=== PATIENT | male | born 1965 | race Caucasian/White ===

== ENCOUNTER → 2017-01-16 | Outpatient (CLI) | payer BC ==
[~2017-01-16] MED LIST: CALC-459 PO; CALCIUM 500 PO; CHOL1TAB5 OR; GABA-113 PO; [UNRECOGNIZED DRUG - OTHER] PO
[2017-01-16 19:23] LABS: FERRITIN 158.2 ng/ml (8.0-388.0); THYROID STIMULATING HORMONE 1.75 uIu/ml (0.300-4.500)
[2017-01-17 07:53] LABS: ESTIMATED AVERAGE GLUCOSE 103 mg/dl; HA1C FLAG Normal (Normal)
[2017-01-21 16:31] LABS: GLUTAMIC ACID DECARBOXYLASE-65 <5 IU/mL (<5); METHYLMALONIC ACID 143 NMOL/L (87-318); MICROSOMAL AB <1 IU/ML (<9); THYROGLOBULIN 15.3 NG/ML (2.8-40.9)
== END | disposition home or self-care (01) ==
LOC: C.LAB 18:09
PROVIDERS: ATTEND Chiropractor
DX: M79.1 Myalgia (principal)

== ENCOUNTER 2017-08-01 09:58 | Emergency (ER) | payer BC ==
[~2017-08-01] VITALS: Ht 177.8 cm; Wt 67.0 kg
[~2017-08-01 09:58] MED LIST changes: -CALC-459 PO; -GABA-113 PO; -[UNRECOGNIZED DRUG - OTHER] PO
[2017-08-01 10:20] VITALS: TEMP 37.2; Ht 177.8 cm; Wt 67.0 kg
[2017-08-01] MEDS ORDERED: GABA-113 PO (11:16)
[2017-08-01] MEDS ORDERED: CALC-459 PO (11:16)
[2017-08-01] MEDS ORDERED: [UNRECOGNIZED DRUG - OTHER] PO (11:16)
--- NOTE | 2017-08-01 11:37 | EMERGENCY ROOM VISIT NOTE ---
History Report prepared by Emily: Henry Manley Under the Supervision of: Dr. Shelley Billingsley D.O. First contact with patient: 11:17 Chief Complaint: DIZZY Stated Complaint: DIZZY, LIGHT HEADED Nursing Triage Summary: This morning felt light headed/dizzy, got in car to drive and when he got to work he still felt dizzy. Now feels woozy. Pt verbalizes this has been ongoing for a couple of weeks, seems to be positional in nature, but today was constant. Called PCP and was referred here for eval. Denies N/V/D, H/A, weakness. History of Present Illness The patient is a 51 year old male who presents to the Emergency Room with complaints of an episode of lightheadedness that occurred prior to arrival this morning. He says that for the past few weeks, he has been getting a head-victor and wooziness upon positional change, but today, the symptoms became more persistent and he felt lightheaded. He notes that he was getting ready for work when he started feeling lightheaded, and it got worse after driving to work. He notes that he was not dizzy however. He called his primary care physician's office, and was told to come here for evaluation. He adds that he felt slightly nauseous at work. The patient says that he now just feels a bit woozy but is mostly fine with resolved symptoms. He denies any loss of consciousness, headaches, chest pain, shortness of breath, sweats, vomiting, diarrhea, or any recent cold symptoms. The patient notes that he has Celiac disease, and went 4 years undiagnosed from 2004 to 2008. He says that he never got his energy back however. 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 He notes no recent sick contacts. He adds that he had a couple hour bus trip last week. 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 He notes that he follows-up with Dr. Weiss of GI. Source of History: patient Onset: Prior to arrival this morning Position: other (global - lightheadedness) Timing: other (episode) Modifying Factors (Worsening): other (positional change) Associated Symptoms: + nausea, No LOC, No headache, No diaphoresis, No chest pain, No SOB, No vomiting, No diarrhea Note: Associated symptoms: Symptoms mostly resolved, just a bit woozy. Denies recent cold symptoms. Review of Systems See HPI for pertinent positives & negatives. A total of 10 systems reviewed and were otherwise negative. Past Medical & Surgical Medical Problems: (1) Allergic rhinitis (2) Celiac disease (3) Neuropathy, leg Family History Hypoglycemia Social History Smoking Status: Never Smoker Smokeless Tobacco Use: No Alcohol Use: none Drug Use: none Marital Status: Housing Status: lives with family Occupation Status: employed Current/Historical Medications Scheduled Calcium Carbonate-Cholecalcife (Calcium 600+D 600-800 mg-Unit), 1 TAB PO DAILY Gabapentin (Neurontin), 300 MG PO BID [Opticort Adrena], 1 TAB PO DAILY Allergies Coded Allergies: Acetaminophen (Verified Allergy, Unknown, 08/25/15) Pseudoephedrine (Verified Allergy, Unknown, 08/25/15) Physical Exam Vital Signs Date Time Temp Pulse Resp B/P (MAP) Pulse Ox O2 Delivery O2 Flow Rate FiO2 08/01/17 13:20 44 15 123/71 99 08/01/17 12:57 44 15 123/71 99 Room Air 08/01/17 11:15 45 16 117/75 100 Room Air 60 123/81 59 118/81 08/01/17 10:20 37.2 68 18 125/70 98 Nasal Cannula Physical Exam GENERAL: alert, well appearing, well nourished, no distress, non-toxic EYE EXAM: normal conjunctiva, PERRL and EOM's grossly intact OROPHARYNX: no exudate, no erythema, lips, buccal mucosa, and tongue normal and mucous membranes are moist NECK: supple, no nuchal rigidity, no adenopathy, non-tender LUNGS: Clear to auscultation. Normal chest wall mechanics HEART: no murmurs, S1 normal and S2 normal ABDOMEN: abdomen soft, non-tender, normo-active bowel sounds, no masses, no rebound or guarding. BACK: Back is symmetrical on inspection and there is no deformity, no midline tenderness, no CVA tenderness. SKIN: no rashes and no bruising UPPER EXTREMITIES: upper extremities are grossly normal. LOWER EXTREMITIES: No pitting edema. NEURO EXAM: Normal sensorium, cranial nerves II-XII grossly intact, normal speech, no gross weakness of arms, no gross weakness of legs. No drift. Finger to nose intact. Gross sensation intact. Medical Decision & Procedures Laboratory Results 08/01/17 11:50 Red Blood Count 4.74, Mean Corpuscular Volume 90.3, Mean Corpuscular Hemoglobin 31.6, Mean Corpuscular Hemoglobin Concent 35.0, Mean Platelet Volume 10.3, Neutrophils (%) (Auto) 61.9, Lymphocytes (%) (Auto) 30.7, Monocytes (%) (Auto) 5.8, Eosinophils (%) (Auto) 1.3, Basophils (%) (Auto) 0.3, Neutrophils # (Auto) 1.91, Lymphocytes # (Auto) 0.95, Monocytes # (Auto) 0.18, Eosinophils # (Auto) 0.04, Basophils # (Auto) 0.01 08/01/17 11:50 Test 08/01/17 11:50 White Blood Count 3.09 K/uL (4.8-10.8) Red Blood Count 4.74 M/uL (4.7-6.1) Hemoglobin 15.0 g/dL (14.0-18.0) Hematocrit 42.8 % (42-52) Mean Corpuscular Volume 90.3 fL (80-100) Mean Corpuscular Hemoglobin 31.6 pg (25-34) Mean Corpuscular Hemoglobin Concent 35.0 g/dl (32-36) Platelet Count 172 K/uL (130-400) Mean Platelet Volume 10.3 fL (7.4-10.4) Neutrophils (%) (Auto) 61.9 % Lymphocytes (%) (Auto) 30.7 % Monocytes (%) (Auto) 5.8 % Eosinophils (%) (Auto) 1.3 % Basophils (%) (Auto) 0.3 % Neutrophils # (Auto) 1.91 K/uL (1.4-6.5) Lymphocytes # (Auto) 0.95 K/uL (1.2-3.4) Monocytes # (Auto) 0.18 K/uL (0.11-0.59) Eosinophils # (Auto) 0.04 K/uL (0-0.5) Basophils # (Auto) 0.01 K/uL (0-0.2) RDW Standard Deviation 42.2 fL (36.4-46.3) RDW Coefficient of Variation 12.8 % (11.5-14.5) Immature Granulocyte % (Auto) 0.0 % Immature Granulocyte # (Auto) 0.00 K/uL (0.00-0.02) Anion Gap 6.0 mmol/L (3-11) Est Creatinine Clear Calc Drug Dose 105.9 ml/min Estimated GFR () 121.6 Estimated GFR (Non- 104.9 BUN/Creatinine Ratio 14.9 (10-20) Calcium Level 8.8 mg/dl (8.5-10.1) Magnesium Level 2.2 mg/dl (1.8-2.4) Total Bilirubin 0.6 mg/dl (0.2-1) Aspartate Amino Transf (AST/SGOT) 16 U/L (15-37) Alanine Aminotransferase (ALT/SGPT) 18 U/L (12-78) Alkaline Phosphatase 51 U/L (45-117) Troponin I < 0.015 ng/ml (0-0.045) Total Protein 7.2 gm/dl (6.4-8.2) Albumin 4.1 gm/dl (3.4-5.0) Globulin 3.1 gm/dl (2.5-4.0) Albumin/Globulin Ratio 1.3 (0.9-2) Thyroid Stimulating Hormone (TSH) 1.950 uIu/ml (0.300-4.500) Laboratory results per my review. Medications Administered Medications (Trade) Dose Ordered Sig/Marlen Route Start Time Stop Time Status Last Admin Dose Admin Sodium Chloride 1,000 ml @ 999 mls/hr Q1H1M STAT IV 08/01/17 11:39 08/01/17 12:39 DC 08/01/17 11:59 999 MLS/HR ECG Indication: nausea Rate (beats per minute): 49 Rhythm: sinus bradycardia Findings: no acute ischemic change, other (normal axis, mild intraventricular conduction delay, normal QTC, artifact noted) ED Course ED COURSE: The patients medical record was reviewed The above diagnostic studies were performed and reviewed. ED treatments and interventions as stated above. 1124: The patient was evaluated in room B10. A complete history and physical examination was performed. 1139: Ordered NSS 1000 ml @ 999 mls/hr IV. 1249: Upon reevaluation, the patient is feeling fine.I discussed my findings with the patient and he understands and agrees with the treatment plan. He says that he barely drinks 30 ounces of water per day and I told him to drink more. Based on the patients age, coexisting illnesses, exam and lab findings the decision to treat as an outpatient was made. The patient remained stable while under my care. The patient appeared well at the time of discharge. Medical Decision Differential diagnosis includes etiologies such as benign positional vertigo, dehydration, hypovolemia, anemia, tumor, infection, hypoglycemia, electrolyte abnormalities, cardiac sources, intracerebral event, toxicologic, neurologic, as well as others were entertained. Patient's prescription of lightheadedness positional most likely related to inadequate fluid intake. Discussed with patient appropriate amount of hydration with water daily. Discussed continued routine medications, symptoms to watch and return for, he verbalized understanding was agreeable with plan. No evidence of dysrhythmia or ectopy while on telemetry. Doubt ACS, patient with no risk factors for ACS. Patient with a normal nonfocal neuro exam at bedside, hints testing negative, , doubt [employer] etiology. Patient has previously had CT as well as MRI due to prior neuro evaluation for peripheral neuropathy. Patient otherwise well-appearing here, tolerating by mouth bedside, had no symptoms during orthostatic testing and was ambulatory to the bathroom under his own power. No evidence of infectious etiology, doubt bacteremia/sepsis. Doubt vascular etiology. No other change in GI function to suggest related to patient's history of celiac disease. Medication Reconcilliation Current Medication List: was personally reviewed by me Blood Pressure Screening Patient's blood pressure: Normal blood pressure Impression Primary Impression: Dizziness Additional Impression: Dehydration Scribe Attestation The scribe's documentation has been prepared under my direction and personally reviewed by me in its entirety. I confirm that the note above accurately reflects all work, treatment, procedures, and medical decision making performed by me. Departure Information Dispostion Home / Self-Care Referrals Bar Marroquin MD (PCP) Patient Instructions My [facility] Additional Instructions Please drink more water. You should be drinking 60-70 ounces a day. Please follow up with your family doctor. Please continue your evaluation for your neuropathy, and your usual follow-up with GI regarding your celiac disease. If you develop any recurrent episodes of persistent lightheadedness, feel as though you're going to pass out or blackout, develop chest pain, headaches, blurred vision, vomiting, fevers, trouble breathing, you've any other new concerns, please return the emergency room. Problem Qualifiers
[2017-08-01] MEDS ORDERED: SODIUM CHLORIDE 0.9% 1000ML 1,000 ML IV STA (11:39)
[2017-08-01 12:05] LABS: BASO % 0.3 %; BASO ABS # 0.01 K/uL (0-0.2); COMPLETE YES; EOS % 1.3 %; HEMATOCRIT 42.8 % (42-52); LYMPH % 30.7 %; LYMPH ABS # 0.95 K/uL (1.2-3.4); MEAN CELL VOLUME 90.3 fL (80-100); MEAN CORPUSCULAR HEMOGLOBIN 31.6 pg (25-34); MEAN PLATELET VOLUME 10.3 fL (7.4-10.4); MONO % 5.8 %; NEUT % 61.9 %; PLATELET COUNT 172 K/uL (130-400); RED BLOOD COUNT 4.74 M/uL (4.7-6.1); WHITE BLOOD COUNT 3.09 K/uL (4.8-10.8)
[2017-08-01 12:23] LABS: ALT/SGPT 18 U/L (12-78); BLOOD UREA NITROGEN 12 mg/dl (7-18); BUN/CREATININE RATIO 14.9 (10-20); CALCIUM 8.8 mg/dl (8.5-10.1); CARBON DIOXIDE 28 mmol/L (21-32); CHLORIDE 108 mmol/L (98-107); GLUCOSE 88 mg/dl (70-99); MAGNESIUM 2.2 mg/dl (1.8-2.4); POTASSIUM 3.7 mmol/L (3.5-5.1); SODIUM 142 mmol/L (136-145)
[2017-08-01 12:34] LABS: ALB/GLOB RATIO 1.3 (0.9-2); ALKALINE PHOSPHATASE 51 U/L (45-117); AST/SGOT 16 U/L (15-37)
[2017-08-01 13:20] VITALS: BP 123/71; PULSE 44; O2SAT 99
== END 2017-08-01 13:21 | disposition home or self-care (01) ==
LOC: C.EDB 09:59
DX: R42 Dizziness and giddiness (principal); E86.0 Dehydration; R11.0 Nausea; R00.1 Bradycardia, unspecified; K90.0 Celiac disease; G57.90 Unspecified mononeuropathy of unspecified lower limb; Z79.899 Other long term (current) drug therapy; Z83.49 Family history of other endocrine, nutritional and metabolic diseases